=== PATIENT | female | born 1980 | race American Indian/Alaskan Native ===

== ENCOUNTER 2022-12-20 05:39 | Emergency (ER) | payer MEDICARE, MEDICAID ==
[~2022-12-20] VITALS: Ht 170.2 cm; Wt 109.6 kg
[2022-12-20 06:43] VITALS: BP 116/72
== END 2022-12-20 07:30 | disposition home or self-care (01) ==
LOC: ER 05:41
DX: R42 Dizziness and giddiness (principal); I10 Essential (primary) hypertension; F17.200 Nicotine dependence, unspecified, uncomplicated; Z59.00 Homelessness unspecified
CPT/HCPCS: 99281